=== PATIENT | female | born 1980 | race Caucasian/White ===

== ENCOUNTER 2019-04-11 19:07 | Emergency (ER) | payer OTHER ==
[~2019-04-11] VITALS: Ht 162.6 cm; Wt 77.1 kg
[~2019-04-11 19:07] MED LIST: EFFEXOR 5050 MG/1 T1 PO; IBUPROFEN 600600 M1 PO; LIDODERM 5%1 PATC1 TRANSDERM; NECON1 EAC1 PO; NORCO 5-325 TA1 EACH PO; PREDNISONE 20 M20 MG PO; SKELAXIN 800 M800 M1 PO
[2019-04-11] MEDS ORDERED: NECON1 EACH PO (19:31)
[2019-04-11] MEDS ORDERED: IBUPROFEN 600600 M1 PO (21:06)
[2019-04-11] MEDS ORDERED: NORFLEX100 MG PO (21:06)
[2019-04-11 21:16] VITALS: BP 124/86
== END 2019-04-11 21:17 | disposition home or self-care (01) ==
LOC: ER 19:07
DX: S00.12XA Contusion of left eyelid and periocular area, initial encounter (principal); S00.83XA Contusion of other part of head, initial encounter; Z88.8 Allergy status to other drugs, medicaments and biological substances; V89.2XXA Person injured in unspecified motor-vehicle accident, traffic, initial encounter; Y93.89 Activity, other specified; Y92.410 Unspecified street and highway as the place of occurrence of the external cause; Y99.8 Other external cause status